=== PATIENT | female | born 2000 | race Hispanic/Latino ===

== ENCOUNTER 2023-07-19 10:01 | Emergency (ER) | payer SELFPAY ==
[~2023-07-19] VITALS: Ht 172.7 cm; Wt 81.3 kg
[2023-07-19 12:48] LABS: GC DNA AMPLIFICATION NEGATIVE (NEGATIVE)
[2023-07-19] MEDS ORDERED: VALT1TAB PO (13:11)
[2023-07-19 13:17] VITALS: BP 117/58; TEMP 98.8; O2SAT 100
== END 2023-07-19 13:22 | disposition home or self-care (01) ==
LOC: M ED 10:01
DX: B00.9 Herpesviral infection, unspecified (principal)

== ENCOUNTER 2023-10-17 21:17 | Emergency (ER) | payer MEDICAID, SELFPAY ==
[~2023-10-17] VITALS: Ht 172.7 cm; Wt 79.2 kg
[~2023-10-17 21:17] MED LIST: VALT1TAB PO
[2023-10-17 21:19] VITALS: TEMP 99.3
[2023-10-17] MEDS ORDERED: ONDA4TAB6 PO (21:27)
[2023-10-17] MEDS ORDERED: METR-265 PO (21:27)
[2023-10-17] MEDS ORDERED: IBUP1TAB7 PO (21:27)
[2023-10-18 00:08] LABS: BASO # 0.1 10^3/uL (0.0-0.2); EOS % 0.6 % (0.0-3.0); HEMATOCRIT 33.2 % (36.0-47.0); HEMOGLOBIN 11.4 g/dl (12.0-15.5); LYMPH # 2.5 10^3/uL (1.5-5.0); LYMPH % 40.8 % (24.0-44.0); MEAN CORPUSCULAR HEMOGLOBIN 30.4 pg (27.0-33.0); MEAN CORPUSCULAR HGB CONC 34.3 g/dl (32.0-36.5); MEAN CORPUSCULAR VOLUME 88.5 fl (80.0-96.0); MONO # 0.7 10^3/uL (0.0-0.8); MONO % 11.3 % (2.0-8.0); NEUTROPHILS # 2.9 10^3/uL (1.5-8.5); NEUTROPHILS % 46.1 % (36.0-66.0); PLATELET COUNT, AUTOMATED 288 10^3/uL (150-450); RED BLOOD COUNT 3.75 10^6/uL (4.00-5.40); WHITE BLOOD COUNT 6.2 10^3/uL (4.0-10.0)
[2023-10-18 00:12] LABS: BLOOD UREA NITROGEN 15 MG/DL (9-23); CALCIUM LEVEL 9.3 MG/DL (8.5-10.1); CARBON DIOXIDE LEVEL 27 MMOL/L (20-31); CHLORIDE LEVEL 104 MMOL/L (98-107); GLOMERULAR FILTRATION RATE > 60.0 (>60); GLUCOSE, FASTING 84 MG/DL (60-100); POTASSIUM SERUM 3.9 MMOL/L (3.5-5.1); SODIUM LEVEL 138 MMOL/L (136-145)
[2023-10-18 00:30] VITALS: BP 116/56
[2023-10-18 00:32] VITALS: O2SAT 99
[2023-10-18 02:41] LABS: RSV AMPLIFICATION NEGATIVE (NEGATIVE)
== END 2023-10-18 02:26 | disposition home or self-care (01) ==
LOC: M ED 21:17
DX: O04.6 Delayed or excessive hemorrhage following (induced) termination of pregnancy (principal); Z79.1 Long term (current) use of non-steroidal anti-inflammatories (NSAID); Z79.899 Other long term (current) drug therapy